=== PATIENT | male | born 2000 ===

== ENCOUNTER 2024-10-10 17:20 | Emergency (ER) | payer BC ==
[2024-10-10] MEDS: Acetaminophen 500 MG Tab PO ONE (18:00)
[2024-10-10] MEDS: Ibuprofen 800 MG Tab PO ONE (18:01)
== END 2024-10-10 18:39 | disposition home or self-care (01) ==
LOC: MW.ED 17:20
DX: M25.531 Pain in right wrist (principal); Z75.3 Unavailability and inaccessibility of health-care facilities; W19.XXXA Unspecified fall, initial encounter
CPT/HCPCS: 73110; 99283; A9270

== ENCOUNTER 2024-11-15 18:38 | Emergency (ER) | payer BC ==
[2024-11-15 18:50] LABS: BASOPHILS ABSOLUTE AUTO 0.04 K/uL (0.00-0.20); BASOPHILS PERCENT AUTO 0.4 % (0.0-1.0); EOSINOPHILS ABSOLUTE AUTO 0.26 K/uL (0.00-0.45); EOSINOPHILS PERCENT AUTO 2.5 % (0.0-6.0); IMMATURE GRAN ABSOLUTE AUTO 0.03 K/uL (0.00-0.05); IMMATURE GRAN PERCENT AUTO 0.3 % (0.0-0.4); LYMPHOCYTES ABSOLUTE AUTO 3.18 K/uL (1.00-4.80); LYMPHOCYTES PERCENT AUTO 30.5 % (24.0-44.0); MEAN PLATELET VOLUME 12.5 fL (9.4-12.4); MONOCYTES ABSOLUTE AUTO 0.60 K/uL (0.00-0.80); MONOCYTES PERCENT AUTO 5.8 % (0.0-8.0); NEUTROPHILS ABSOLUTE AUTO 6.31 K/uL (1.80-7.70); NEUTROPHILS PERCENT AUTO 60.5 % (41.0-71.0); NRBC ABSOLUTE 0.00 K/uL (0.00-0.02); NRBC PERCENT 0.0 /100WBC (0.0-0.2); PLATELET COUNT,PLT 170 K/uL (150-400); RED BLOOD CELL COUNT 5.05 M/uL (4.52-5.90); WHITE BLOOD CELL COUNT,WBC 10.42 K/uL (3.9-11.3)
[2024-11-15] MEDS: Ondansetron 4 MG/2 ML SDV IVPUSH ONE (18:56)
[2024-11-15 19:04] LABS: BLOOD UREA NITROGEN,BUN 16 mg/dL (7.0-18.0); CARBON DIOXIDE,CO2 24.7 mmol/L (21.0-32.0); CHLORIDE,CL 103 mmol/L (98-107); CREATININE 1.1 mg/dL (0.8-1.3); GLUCOSE RANDOM 99 mg/dL (74-106); POTASSIUM,K 3.3 mmol/L (3.5-5.1); SODIUM,NA 140 mmol/L (136-148)
[2024-11-15 19:08] LABS: ESTIMATED GFR 96 mL/min (>60)
[2024-11-15] MEDS: Iopamidol 755 Mg/ML 100 ML Bottle IVPUSH ONE (19:32)
[2024-11-15] MEDS: Ketorolac 30 MG/ML SDV IVPUSH ONE (20:47)
== END 2024-11-15 20:51 | disposition home or self-care (01) ==
LOC: MW.ED 18:38
DX: T71.9XXA Asphyxiation due to unspecified cause, initial encounter (principal); R51.9 Headache, unspecified; Y04.2XXA Assault by strike against or bumped into by another person, initial encounter
CPT/HCPCS: 36415; 70450; 70496; 70498; 71045; 72125; 73100; 80048; 85025; 96374; 96375; 99285; J1885; J2270; J2405; Q9967; 99284